=== PATIENT | female | born 1955 | race Caucasian/White ===

== ENCOUNTER → 2020-09-26 11:48 | Outpatient (CLI) | payer MEDICARE, OTHER, SELFPAY ==
[2020-09-26 14:15] LABS: CRP 3.61 mg/L (0.0-3.0); T4 Total, Thyroxin 9.2 ug/dL (4.8-13.9); Thyroid Stim Hormone (TSH) 1.52 uIU/mL (0.358-3.74)
[2020-09-27 20:07] LABS: Endomysial Antibody IgA Negative (Negative)
[2020-09-27 21:39] LABS: Immunoglobulin A 138 mg/dL (87-352); t-Transglutaminase IgA <2 U/mL (0-3)
== END ==
PROVIDERS: PCP Nurse Practitioner Family; Referring Provider Internal Medicine Gastroenterology; Visit Provider Internal Medicine Gastroenterology
DX: R19.7 Diarrhea, unspecified (principal)
CPT/HCPCS: 36415; 82784; 83516; 84436; 84443; 86140; 86255